=== PATIENT | male | born 1955 | race Caucasian/White ===

== ENCOUNTER 2018-12-16 14:37 | Inpatient (IN) | payer MEDICARE ==
[~2018-12-16] VITALS: Ht 154.9 cm; Wt 100.6 kg
[2018-12-16] MEDS ORDERED: Aspirin EC81 MG PO (15:04)
[2018-12-16] MEDS ORDERED: ATOR40TA PO (15:04)
[2018-12-16] MEDS ORDERED: CELE200 PO (15:05)
[2018-12-16] MEDS ORDERED: FISH OIL CONC1000 MG PO (15:06)
[2018-12-16] MEDS ORDERED: GABA400 PO (15:06)
[2018-12-16] MEDS ORDERED: Garlic Oil1000 MG PO (15:09)
[2018-12-16] MEDS ORDERED: LISI20 PO (15:10)
[2018-12-16] MEDS ORDERED: OMEPRAZOLE20 MG PO (15:10)
[2018-12-16 16:04] LABS: BASOPHILS ABSOLUTE AUTO 0.02 K/mm3 (0.00-0.23); BASOPHILS PERCENT AUTO 0 % (0-2); EOSINOPHILS ABSOLUTE AUTO 0.01 K/mm3 (0.00-0.68); EOSINOPHILS PERCENT AUTO 0 % (0-6); Hemoglobin 12.6 g/dL (13.5-17.5); IMMATURE GRAN ABSOLUTE AUTO 0.06 K/mm3 (0.00-0.10); IMMATURE GRAN PERCENT AUTO 1 % (0-1); LYMPHOCYTES ABSOLUTE AUTO 0.81 K/mm3 (0.84-5.20); LYMPHOCYTES PERCENT AUTO 7 % (21-46); MONOCYTES ABSOLUTE AUTO 1.09 K/mm3 (0.16-1.47); MONOCYTES PERCENT AUTO 9 % (4-13); Mean Corpuscular HGB Conc 34.1 g/dL (31.5-36.5); Mean Corpuscular Volume 94 fL (80-100); Mean Platelet Volume 8.5 fL (9.1-12.4); NEUTROPHILS PERCENT AUTO 83 % (41-73); Platelet Count 140 K/mm3 (150-400); RDW Coefficient Variation 11.6 % (11.7-14.2); RDW Standard Deviation 40.1 fL (35.1-46.3); Red Blood Cell Count 3.94 M/mm3 (4.30-5.90); White Blood Cell Count 11.59 K/mm3 (4.00-11.30)
[2018-12-16 19:06] LABS: Body Fluid Crystals NEG (NEGATIVE)
[2018-12-16 19:13] LABS: Automated BF RBC Count 0.085 M/mm3 (0-0); RBC Count, Body Fluid 85000 /mm3 (0-0)
[2018-12-16 19:39] LABS: Body Fluid WBC Count 163780 /mm3 (0-999)
[2018-12-16 19:50] LABS: Color, Body Fluid Brown (None-Yellow); Total Cell Count, Body Fluid 100
[2018-12-16 19:51] LABS: Appearance, Body Fluid Turbid (Clear)
[2018-12-16] MEDS ORDERED: SILD50TA PO (20:02)
--- NOTE | 2018-12-17 00:48 | NUR ---
PT. WITH TEMP OF 102.4 THIS EVENING. MEDICATED PT. WITH TYLENOL PER EMAR @1930. REASSESSMENT OF TEMP WAS 103.1. NO APPARENT DISTRESS NOTED. CALLED PLACED TO CAYLA LUGO [facility] MAN. RECEIVED NEW ORDERS (SEE EMAR). INSTRUCTED BY PROVIDER TO ADMINISTER EARLY DOSE OF TYLENOL. PT. TOLERATED WELL, TEMPERATURE AT 98.8. PT. RESTING COMFORTABLY IN BED, NO APPARENT DISTRESS NOTED. DENIES NEEDS AT THIS TIME. CALL LIGHT WITHIN REACH AND SIDE RAILS UP X2. WILL CONT TO MONITOR.
--- NOTE | 2018-12-17 04:22 | NUR ---
SHIFT SUMMARY- PT. NEW ADMISSION FROM THE ED WITH LT HIP PAIN/SEPTIC ARTHRITIS. A&O, NOT ABLE TO SIT UP IN BED DUE TO SEVERE HIP PAIN. USING URINAL WITH ASSISTANCE AND VOIDING WELL. VS SHOWED ELEVATED TEMP AND HR. PT. NOT IN DISTRESS. MEDICATION GIVEN PER EMAR. ALSO NOTIFIED FURNACE TENDER LUGO OF ABNORMAL VS. NEW ORDERS RECEIVED. 500ML IV BOLUS ADMINISTERED AND PAIN MEDICATION GIVEN T/O THE NIGHT PRN PER EMAR. REASSESSMENT OF VS WNL. PT. SLEPT WELL T/O THE REST OF THE SHIFT. ORTHO CONSULT IN PLACE. MAINTENANCE IV FLUIDS RUNNNG. CALL LIGHT WITHIN REACH AND SIDE RAILS UP X2. WILL CONT TO MONITOR.
[2018-12-17 04:42] LABS: BASOPHILS ABSOLUTE AUTO 0.03 K/mm3 (0.00-0.23); BASOPHILS PERCENT AUTO 0 % (0-2); EOSINOPHILS ABSOLUTE AUTO 0.01 K/mm3 (0.00-0.68); EOSINOPHILS PERCENT AUTO 0 % (0-6); Hematocrit 35.1 % (37.0-53.0); IMMATURE GRAN ABSOLUTE AUTO 0.07 K/mm3 (0.00-0.10); IMMATURE GRAN PERCENT AUTO 1 % (0-1); LYMPHOCYTES ABSOLUTE AUTO 0.76 K/mm3 (0.84-5.20); LYMPHOCYTES PERCENT AUTO 7 % (21-46); MONOCYTES PERCENT AUTO 10 % (4-13); Mean Corpuscular HGB 32.2 pg (26.0-34.0); Mean Corpuscular HGB Conc 34.2 g/dL (31.5-36.5); Mean Corpuscular Volume 94 fL (80-100); Mean Platelet Volume 8.8 fL (9.1-12.4); NEUTROPHILS PERCENT AUTO 82 % (41-73); Platelet Count 141 K/mm3 (150-400); RDW Coefficient Variation 11.8 % (11.7-14.2); RDW Standard Deviation 40.8 fL (35.1-46.3); Red Blood Cell Count 3.73 M/mm3 (4.30-5.90); White Blood Cell Count 11.67 K/mm3 (4.00-11.30)
[2018-12-17 05:04] LABS: Anion Gap 5 mmol/L (6-16); Blood Urea Nitrogen 17 mg/dL (8-24); Bun/Creatinine Ratio 22.8 (12.0-20.0); CO2, Blood 26 mmol/L (21-32); Calcium, Blood 8.4 mg/dL (8.5-10.1); Chloride, Blood 105 mmol/L (98-108); Creatinine, Blood 0.74 mg/dL (0.60-1.20); Glomerular Filtration Rate >60 (60-); Glucose, Blood 121 mg/dL (70-99); Potassium, Blood 3.5 mmol/L (3.5-5.5); Sodium, Blood 136 mmol/L (136-145)
--- NOTE | 2018-12-17 12:30 | NUR ---
IN TO SEE PATIENT . WILL BE NPO AFTER MIDNITE FOR SURGERY
--- NOTE | 2018-12-17 16:18 | NUR ---
ECHO BEING DONE
--- NOTE | 2018-12-17 16:43 | NUR ---
Echocardiogram completed.
--- NOTE | 2018-12-17 18:27 | NUR ---
ALERT. ORIENTED. UNLABORED RESPIRATIONS. PASSING GAS, BUT UNABLE TO HAVE B.M AT THIS TIME. AWARE OF SURGERY TOMORROW. PAIN LEFT HIP SEEMS TO BE TOLERABLE W/PRN MEDS. IV PATENT. PATIENT NOT ABLE TO GET OOB DUE TO PAIN LEFT HIP. BED IN LOW POSITION. ABLE TO MAKE NEEDS KNOWN. WCTM.
--- NOTE | 2018-12-18 04:45 | NUR ---
SHIFT SUMMARY- PT. RESTED WELL T/O SHIFT. OCCASIONAL C/O PAIN AND DISCOMFORT TO THE LT. HIP. NO APPARENT DISTRESS NOTED. TOLERATING IV ABX'S WELL, IV FLUIDS RUNNING. PT. HAS BEEN NPO AFTER MN FOR AM SURGERY. CALL LIGHT WITHIN REACH AND SIDE RAILS UP X2. WILL CONT TO MONITOR.
[2018-12-18 04:57] LABS: BASOPHILS ABSOLUTE AUTO 0.02 K/mm3 (0.00-0.23); BASOPHILS PERCENT AUTO 0 % (0-2); EOSINOPHILS ABSOLUTE AUTO 0.03 K/mm3 (0.00-0.68); EOSINOPHILS PERCENT AUTO 0 % (0-6); Hemoglobin 11.8 g/dL (13.5-17.5); IMMATURE GRAN ABSOLUTE AUTO 0.04 K/mm3 (0.00-0.10); IMMATURE GRAN PERCENT AUTO 0 % (0-1); LYMPHOCYTES ABSOLUTE AUTO 0.75 K/mm3 (0.84-5.20); LYMPHOCYTES PERCENT AUTO 8 % (21-46); MONOCYTES ABSOLUTE AUTO 0.92 K/mm3 (0.16-1.47); MONOCYTES PERCENT AUTO 10 % (4-13); Mean Corpuscular HGB 31.8 pg (26.0-34.0); Mean Corpuscular HGB Conc 33.7 g/dL (31.5-36.5); Mean Corpuscular Volume 94 fL (80-100); Mean Platelet Volume 9.3 fL (9.1-12.4); NEUTROPHILS ABSOLUTE AUTO 7.45 K/mm3 (1.96-9.15); NEUTROPHILS PERCENT AUTO 81 % (41-73); Platelet Count 162 K/mm3 (150-400); RDW Standard Deviation 41.9 fL (35.1-46.3); Red Blood Cell Count 3.71 M/mm3 (4.30-5.90); White Blood Cell Count 9.21 K/mm3 (4.00-11.30)
[2018-12-18 05:20] LABS: Anion Gap 6 mmol/L (6-16); Blood Urea Nitrogen 12 mg/dL (8-24); Bun/Creatinine Ratio 16.9 (12.0-20.0); CO2, Blood 28 mmol/L (21-32); Calcium, Blood 8.6 mg/dL (8.5-10.1); Chloride, Blood 102 mmol/L (98-108); Creatinine, Blood 0.71 mg/dL (0.60-1.20); Glomerular Filtration Rate >60 (60-); Glucose, Blood 108 mg/dL (70-99); Potassium, Blood 3.7 mmol/L (3.5-5.5); Sodium, Blood 136 mmol/L (136-145)
[2018-12-18 05:36] LABS: C-REACTIVE PROTEIN, EXT RANGE >19.000 mg/dL (0.000-0.300)
[2018-12-18 10:42] LABS: Vancomycin, Trough 6.5 ug/mL (5.0-10.0)
--- NOTE | 2018-12-18 14:00 | NUR ---
TO SURGERY. IV SALINE LOCKED.
--- NOTE | 2018-12-18 14:14 | NUR ---
History, Chart, Medications and Allergies reviewed before start of procedure. Lungs clear T/O to Auscultation. Patient confirms NPO status and agrees with scheduled surgery. Pre-Op teaching done. Pt verbalizes understanding.
--- NOTE | 2018-12-18 17:46 | NUR ---
PATIENT BACK FROM SURGERY. IV LR HOOKED UP AT 125ML/HR. DRAIN IN PLACE LEFT HIP WITH RED FLUID IN TUBING. DRESSING INTACT. ICE PACK TO AREA. PATIENT ALERT. ORIENTED. VSWNL. INSTRUCTED ON I.S. W/PATIENT DOING 5. ADVISED WILL BE DOING 5 PER 1/2 HOUR. KEVON.
--- NOTE | 2018-12-18 18:36 | NUR ---
ALERT. ORIENTED. PLEASANT. ABLE TO SIT UP ABOUT 45 DEGREES IN BED; WHEREAS, COULD NOT DO THIS EARLIER OR YESTERDAY. LARGE B.M. IN DAY SURGERY. DRESSING DRY, INTACT. WCTM
--- NOTE | 2018-12-19 03:50 | NUR ---
SHIFT SUMMARY- PT. S/P I&D OF THE LT HIP. DRESSING C/D/I. HEMOVAC DRAIN IN PLACE, DRAINAGE AMOUNT OF 30ML 8HRS FROM TIME RETURN TO THE FLOOR. PAIN WELL MANAGED WITH CURRENT PAIN MEDIATION. CONTS ON IV ABX'S AND FLUIDS, TOLERATING WELL. PT. HAD NORMAL BM THIS EVENING. VS WNL T/O THE SHIFT. PT. HAS RESTED WELL T/O THE NIGHT, NO APPARENT DISTRESS NOTED. CALL LIGHT WITHIN REACH AND SIDE RAILS UP X2. WILL CONT TO MONITOR.
[2018-12-19 04:20] LABS: BASOPHILS ABSOLUTE AUTO 0.03 K/mm3 (0.00-0.23); BASOPHILS PERCENT AUTO 0 % (0-2); EOSINOPHILS ABSOLUTE AUTO 0.03 K/mm3 (0.00-0.68); EOSINOPHILS PERCENT AUTO 0 % (0-6); Hematocrit 33.3 % (37.0-53.0); Hemoglobin 11.4 g/dL (13.5-17.5); IMMATURE GRAN ABSOLUTE AUTO 0.08 K/mm3 (0.00-0.10); IMMATURE GRAN PERCENT AUTO 1 % (0-1); LYMPHOCYTES ABSOLUTE AUTO 0.92 K/mm3 (0.84-5.20); LYMPHOCYTES PERCENT AUTO 8 % (21-46); MONOCYTES ABSOLUTE AUTO 1.04 K/mm3 (0.16-1.47); MONOCYTES PERCENT AUTO 9 % (4-13); Mean Corpuscular HGB 31.8 pg (26.0-34.0); Mean Corpuscular HGB Conc 34.2 g/dL (31.5-36.5); Mean Corpuscular Volume 93 fL (80-100); Mean Platelet Volume 8.9 fL (9.1-12.4); NEUTROPHILS ABSOLUTE AUTO 9.46 K/mm3 (1.96-9.15); NEUTROPHILS PERCENT AUTO 82 % (41-73); Platelet Count 166 K/mm3 (150-400); RDW Coefficient Variation 12.2 % (11.7-14.2); RDW Standard Deviation 41.4 fL (35.1-46.3); Red Blood Cell Count 3.59 M/mm3 (4.30-5.90); White Blood Cell Count 11.56 K/mm3 (4.00-11.30)
--- NOTE | 2018-12-19 07:22 | NUR ---
REQUESTED PAIN MEDS FEW MINUTES AGO. PATIENT NOW SNORING. WHEN ASKED ABOUT PAIN LEVEL CONTINUES TO SNORE. NOT AWAKENED.UNLABORED RESPIRATIONS
--- NOTE | 2018-12-19 10:51 | NUR ---
PATIENT USES I.S. OFTEN.
--- NOTE | 2018-12-19 12:32 | NUR ---
hemovac drain taken out by surgeon.
--- NOTE | 2018-12-19 12:40 | NUR ---
IN RECLINER SINCE THIS MORNING. STS FEELS BETTER IN CHAIR THAN BED.
--- NOTE | 2018-12-19 13:07 | NUR ---
NOTIFIED PATIENT DEVELOPED RASH UPPER BACK, RAISED, ITCHY, RED. NO NEW MEDS. HAS HAD VANCO BEFORE WITHOUT ANY PROBLEMS. BENADRYL 25 MG P.O. ONCE
--- NOTE | 2018-12-19 15:21 | NUR ---
ITCHING TO BACK GONE. STILL RED, BUMPY. REDNESS SLIGHTLY BETTER
--- NOTE | 2018-12-19 16:52 | NUR ---
12/19/181651 Daisy Reeder VERIFICATIONS.
[2018-12-20 04:43] LABS: BASOPHILS ABSOLUTE AUTO 0.04 K/mm3 (0.00-0.23); BASOPHILS PERCENT AUTO 0 % (0-2); EOSINOPHILS ABSOLUTE AUTO 0.33 K/mm3 (0.00-0.68); EOSINOPHILS PERCENT AUTO 4 % (0-6); Hematocrit 31.8 % (37.0-53.0); Hemoglobin 10.6 g/dL (13.5-17.5); IMMATURE GRAN ABSOLUTE AUTO 0.18 K/mm3 (0.00-0.10); IMMATURE GRAN PERCENT AUTO 2 % (0-1); LYMPHOCYTES ABSOLUTE AUTO 1.33 K/mm3 (0.84-5.20); LYMPHOCYTES PERCENT AUTO 14 % (21-46); MONOCYTES ABSOLUTE AUTO 0.93 K/mm3 (0.16-1.47); MONOCYTES PERCENT AUTO 10 % (4-13); Mean Corpuscular HGB 31.6 pg (26.0-34.0); Mean Corpuscular HGB Conc 33.3 g/dL (31.5-36.5); Mean Corpuscular Volume 95 fL (80-100); Mean Platelet Volume 9.3 fL (9.1-12.4); NEUTROPHILS ABSOLUTE AUTO 6.58 K/mm3 (1.96-9.15); NEUTROPHILS PERCENT AUTO 70 % (41-73); Platelet Count 220 K/mm3 (150-400); RDW Coefficient Variation 12.6 % (11.7-14.2); RDW Standard Deviation 44.1 fL (35.1-46.3); Red Blood Cell Count 3.35 M/mm3 (4.30-5.90); White Blood Cell Count 9.39 K/mm3 (4.00-11.30)
--- NOTE | 2018-12-20 05:33 | NUR ---
SHIFT SUMMARY PATIENT IS ALERT AND ORIENTED TO SELF, PLACE AND TIME. COMPLAINS OF HIP PAIN THROUGHOUT THE NIGHT. MEDICATED ORDERED. ICE PACK USED WITH NO RELIEF. PATIENT DID NOT SLEEP MUCH THROUGHOUT THE NIGHT LIKELY DUE TO PAIN. VITALS STABLE. SURGICAL DRESSING IS C/D/I. NO NEW CHANGES THROUGHOUT THE NIGHT.
[2018-12-20] MEDS ORDERED: ACET500 PO (17:34)
[2018-12-20] MEDS ORDERED: Cefazolin1 GM/50 ML IV (17:36)
[2018-12-20] MEDS ORDERED: ROXICODONE5 MG PO (17:37)
--- NOTE | 2018-12-20 17:56 | NUR ---
PT DISCHARGED PT DISCHARGED TO [facility] , REPORT CALLED TO MINA WU, THE PT WAS A MODERATE ASSIST TO THE WHEELCHAIR DUR TO LEFT LEG PAIN, THE PT APPEARED TO BE BREATHING EASILTY ON RA, VS WNL AT UT, PT WAS TRANSFERED VIA WHEELCHAIR ACCOMPANIED BY LUDLOW ESCORT, BELONGINGS RELEASED TO THE PT
== END 2018-12-20 18:17 | DRG 482 ==
LOC: ER 14:37 → MEDS 18:06 → ER 18:06 → MEDS 18:47 → ENPENDDIS 12-20 17:33 → MEDS 12-20 18:17
PROVIDERS: Emergency Medicine; Nurse Practitioner Acute Care; Orthopaedic Surgery; ADMIT Internal Medicine
PROC: 0S9B3ZX Drainage of Left Hip Joint, Percutaneous Approach, Diagnostic (ICD-10-PCS; principal; 2018-12-16)
PROC: 0SBB0ZZ Excision of Left Hip Joint, Open Approach (ICD-10-PCS; 2018-12-18)
DX: M00.052 Staphylococcal arthritis, left hip (principal); Z79.82 Long term (current) use of aspirin; E78.5 Hyperlipidemia, unspecified; I10 Essential (primary) hypertension; K21.9 Gastro-esophageal reflux disease without esophagitis
CPT/HCPCS: 36415; 76000; 76882; 80048; 80202; 85025; 85651; 86140; 87040; 87070; 87075; 87077; 87147; 87186; 87205; 89051; 89060; 93005; 93010; 93306; 96374; 97110; 97116; 97161; 97165; 97530; 97535; 99285-25; C1751; J0330; J0690; J0696; J1170; J2250; J2370; J2405; J2710; J3010; J3370; J7040; J7050; J7120; Q0163

== ENCOUNTER 2019-02-28 16:22 | Inpatient (IN) | payer MEDICARE ==
[~2019-02-28] VITALS: Ht 198.1 cm; Wt 87.2 kg
[~2019-02-28 16:22] MED LIST: ACET500 PO; ATOR40TA PO; Aspirin EC81 MG PO; CELE200 PO; Cefazolin1 GM/50 ML IV; FISH OIL CONC1000 MG PO; GABA400 PO; Garlic Oil1000 MG PO; LISI20 PO; OMEPRAZOLE20 MG PO; ROXICODONE5 MG PO; SILD50TA PO
[2019-02-28 17:58] LABS: BASOPHILS ABSOLUTE AUTO 0.04 K/mm3 (0.00-0.23); BASOPHILS PERCENT AUTO 0 % (0-2); EOSINOPHILS ABSOLUTE AUTO 0.14 K/mm3 (0.00-0.68); EOSINOPHILS PERCENT AUTO 1 % (0-6); Hemoglobin 11.7 g/dL (13.5-17.5); IMMATURE GRAN ABSOLUTE AUTO 0.11 K/mm3 (0.00-0.10); IMMATURE GRAN PERCENT AUTO 1 % (0-1); LYMPHOCYTES ABSOLUTE AUTO 1.46 K/mm3 (0.84-5.20); LYMPHOCYTES PERCENT AUTO 13 % (21-46); MONOCYTES ABSOLUTE AUTO 0.81 K/mm3 (0.16-1.47); MONOCYTES PERCENT AUTO 7 % (4-13); Mean Corpuscular HGB 28.8 pg (26.0-34.0); Mean Corpuscular HGB Conc 32.5 g/dL (31.5-36.5); Mean Corpuscular Volume 89 fL (80-100); Mean Platelet Volume 8.2 fL (9.1-12.4); NEUTROPHILS ABSOLUTE AUTO 8.32 K/mm3 (1.96-9.15); NEUTROPHILS PERCENT AUTO 77 % (41-73); Platelet Count 373 K/mm3 (150-400); RDW Coefficient Variation 13.4 % (11.7-14.2); RDW Standard Deviation 43.9 fL (35.1-46.3); Red Blood Cell Count 4.06 M/mm3 (4.30-5.90); White Blood Cell Count 10.88 K/mm3 (4.00-11.30)
[2019-02-28] MEDS ORDERED: ATOR40TA PO (18:06)
[2019-02-28] MEDS ORDERED: CELECOXIB200 MG PO (18:06)
[2019-02-28] MEDS ORDERED: SILDENAFIL CIT100 MG PO (18:09)
[2019-02-28] MEDS ORDERED: Fish Oil 10001000 MG PO (18:10)
[2019-02-28 18:18] LABS: Alanine Aminotransfer (ALT/SGP 84 U/L (12-78); Albumin, Blood 2.6 g/dL (3.4-5.0); Albumin/Globulin Ratio 0.6 (0.8-1.8); Alk Phos 185 U/L (50-136); Anion Gap 5 mmol/L (6-16); Aspartate Aminotrans (AST/SGOT 75 U/L (12-37); Bilirubin, Total 0.6 mg/dL (0.1-1.0); Blood Urea Nitrogen 14 mg/dL (8-24); Bun/Creatinine Ratio 20.6 (12.0-20.0); CO2, Blood 26 mmol/L (21-32); Calcium, Blood 9.2 mg/dL (8.5-10.1); Chloride, Blood 101 mmol/L (98-108); Creatinine, Blood 0.68 mg/dL (0.60-1.20); Globulin, Blood 4.6 g/dL (2.2-4.0); Glomerular Filtration Rate >60 (60-); Glucose, Blood 95 mg/dL (70-99); Sodium, Blood 132 mmol/L (136-145); Total Protein, Blood 7.2 g/dL (6.4-8.2)
[2019-02-28 19:50] LABS: BODY FLUID RBC 0.213 M/mm3 (0-0); RBC Count, Synovial Fluid 213000 /mm3 (0-0); WBC Count, Synovial Fluid >200000 /mm3 (0-180)
[2019-02-28 19:51] LABS: Color, Synovial Fluid Dark Yellow (None-P Yel)
[2019-02-28 19:51] LABS: Prothrombin Time Results 10.6 Sec (9.7-11.5)
[2019-02-28 19:52] LABS: Appearance, Synovial Fluid Turbid (Clear)
[2019-02-28 20:21] LABS: Lymphs, Synovial Fluid 1 % (0-15); Monocytes/Macrophages, Synovia 1 % (0-65); Neutrophils, Synovial Fluid 98 % (0-24)
[2019-03-01 05:07] LABS: BASOPHILS ABSOLUTE AUTO 0.05 K/mm3 (0.00-0.23); BASOPHILS PERCENT AUTO 1 % (0-2); EOSINOPHILS ABSOLUTE AUTO 0.19 K/mm3 (0.00-0.68); EOSINOPHILS PERCENT AUTO 2 % (0-6); Hematocrit 36.6 % (37.0-53.0); Hemoglobin 11.7 g/dL (13.5-17.5); IMMATURE GRAN ABSOLUTE AUTO 0.13 K/mm3 (0.00-0.10); IMMATURE GRAN PERCENT AUTO 2 % (0-1); LYMPHOCYTES ABSOLUTE AUTO 1.67 K/mm3 (0.84-5.20); LYMPHOCYTES PERCENT AUTO 19 % (21-46); MONOCYTES ABSOLUTE AUTO 0.75 K/mm3 (0.16-1.47); MONOCYTES PERCENT AUTO 9 % (4-13); Mean Corpuscular HGB 28.7 pg (26.0-34.0); Mean Corpuscular Volume 90 fL (80-100); Mean Platelet Volume 8.1 fL (9.1-12.4); NEUTROPHILS ABSOLUTE AUTO 5.81 K/mm3 (1.96-9.15); NEUTROPHILS PERCENT AUTO 68 % (41-73); Platelet Count 368 K/mm3 (150-400); RDW Coefficient Variation 13.6 % (11.7-14.2); RDW Standard Deviation 44.5 fL (35.1-46.3); Red Blood Cell Count 4.07 M/mm3 (4.30-5.90)
[2019-03-01 05:27] LABS: Anion Gap 5 mmol/L (6-16); Blood Urea Nitrogen 14 mg/dL (8-24); Bun/Creatinine Ratio 20.2 (12.0-20.0); CO2, Blood 29 mmol/L (21-32); Chloride, Blood 102 mmol/L (98-108); Creatinine, Blood 0.69 mg/dL (0.60-1.20); Glomerular Filtration Rate >60 (60-); Glucose, Blood 87 mg/dL (70-99); Sodium, Blood 136 mmol/L (136-145)
--- NOTE | 2019-03-01 05:44 | NUR ---
SHIFT SUMMARY PT ER ADMIT THIS FOR LEFT HIP PAIN. PT STATUS POST LEFT HIP REPLACEMENT 12/28, AND HAS RECURRENT SEPTIC JOINT. PT HAS HAD INCREASED PAIN, ESPCIALLY WITH MOVMENT. USES A CANE FOR AMBULATION. ALL OTHER SYSTEMS ARE NEGATIVE ASIDE FROM HIP. MEDICATING WITH NORCO PRN FOR PAIN. MRI OF LEFT HIP HAS BEEN ORDERED. SCREENING FORM COMPLETED. VITALS STABLE. PT A/OX4. PLESANT AND COOPERATIVE WITH CARE. TELE IN PLACE WITH NSR. ADMISSION COMPLETE. WILL CONTINUE TO MONITOR AND REPORT TO ONCOMING RN.
--- NOTE | 2019-03-01 17:22 | NUR ---
SHIFT SUMMARY NO ACUTE CHANGES. PATIENT MEDICATED X 2 FOR PAIN THIS SHIFT. DENIES NAUSEA AND SHORTNESS OF BREATH. UP ONE ASSIST WITH CANE. PATIENT HAD MRI TODAY. PATIENT HAS INFECTION IN L HIP LOINT AND BONE. COBRA TRANSFER WHEN BED AVAILABLE. PATIENT MAY HAVE DRAIN PLACED IN HIP WHILE WAITING FOR COBRA TRANSFER. DR. JUÁREZ CONSULTING ON PATIENT. CALL LIGHT IN REACH.
--- NOTE | 2019-03-02 06:14 | NUR ---
MEDICAL FLOOR NOC SHIFT SUMMARY PATIENT ALERT AND ORIENTED X4 T/O SHIFT. RESP E/U ON ROOM AIR; L/S CLEAR. 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 PATIENT HAS ON GOING LEFT HIP PAIN RELIEVED WITH MEDICATIONS PER EMAR. PATIENT TO BE COBRA TRANSFERED TO [facility] OR [facility] WITH AN ACCEPT MD MATA FOR OSTEOMYLITIS OF LEFT HIP - [place] SURGICAL SITE NOTED FROM DRAINING 03/01 AND SCAR NOTED FROM DECEMBER. PATIENT PLEASANT AND COOPERATIVE WITH CARE - MEDICATED WITH IV ANTIBIOTICS PER EMAR THIS SHIFT. NO ACUTE CHANGES NOTED. CALL LIGHT W/I REACH, PATIENT DENIES ANY NEEDS AT THIS TIME. WILL CONTINUE TO MONITOR AND REPORT TO DAYSHIFT RN.
--- NOTE | 2019-03-02 18:12 | NUR ---
PATIENT CONSENTED TO COBRA TRANSFER. PATIENT WAS PICKED UP BY TRANSPORT AT 1740 AND LEFT WITH TRANSPORT. REPORT WAS CALLED TO PAULA AT [facility] FOR THE PATIENT PRIOR TO HIS TRANSFER. ALL DOCUMENTS SENT WITH THE PATIENT AND IMAGES HAVE BEEN PUSHED TO [facility].
== END 2019-03-02 17:45 | disposition short-term general hospital (02) | DRG 549 ==
LOC: ER 16:22 → MEDS 16:23 → ENPENDDIS 03-02 10:00 → MEDS 03-02 17:45
PROVIDERS: Emergency Medicine; ADMIT Internal Medicine
PROC: 0SBB3ZX Excision of Left Hip Joint, Percutaneous Approach, Diagnostic (ICD-10-PCS; principal; 2019-02-28)
DX: M00.052 Staphylococcal arthritis, left hip (principal); M86.8X8 Other osteomyelitis, other site; M87.9 Osteonecrosis, unspecified; B95.61 Methicillin susceptible Staphylococcus aureus infection as the cause of diseases classified elsewhere; I10 Essential (primary) hypertension; E78.5 Hyperlipidemia, unspecified; K21.9 Gastro-esophageal reflux disease without esophagitis; M50.10 Cervical disc disorder with radiculopathy, unspecified cervical region
CPT/HCPCS: 20611; 36415; 73502; 73723; 75989; 76942; 80048; 80053; 83605; 85025; 85610; 85651; 85730; 86140; 87040; 87070; 87075; 87077; 87186; 87205; 89051; 96374-59; 96375-59; 99285-25; A9270; A9270-GY; A9577; C1751; J1170; J1644; J1956; J2405; J3370; J7050

== ENCOUNTER 2021-07-13 11:37 | Day surgery (SDC) | payer OTHER ==
[~2021-07-13] VITALS: Ht 165.1 cm; Wt 97.5 kg
[~2021-07-13 11:37] MED LIST changes: +CELECOXIB200 MG PO; +DULO60 PO; +FAMO40; +Fish Oil 10001000 MG PO; +SILDENAFIL CIT100 MG PO
--- NOTE | 2021-07-13 13:21 | NUR ---
07/13/21 1321 AN ERWIN History, Chart, Medications and Allergies reviewed before start of procedure. Patient confirms NPO status and agrees with scheduled surgery. 3-LEAD EKG REVIEWED WITH PHYSICIAN PRIOR TO START OF PROCEDURE. MONITOR INTACT WITH CONTINUOUS PULSE OXIMETRY AND INTERMITTENT BP. PATIENT DETERMINED TO BE ASA APPROPRIATE FOR PROPOFOL SEDATION PRIOR TO START OF PROCEDURE BY DR. HPAM.
--- NOTE | 2021-07-13 14:26 | NUR ---
PT ALERT AND ORIENTED, TOLERATING PO FLUIDS AND FOOD.
--- NOTE | 2021-07-13 14:45 | NUR ---
Patient up to Ambulate independently. Gait steady. Discharge instructions reviewed with patient. Patient verbalizes understanding. Copy given to patient to take home. Patient States Post-Procedure ride home has been arranged. Discharged via wheelchair to private car for ride home. ALL BELONGINGS RETURNED TO PATIENT THAT THEY CAME TO [facility] WITH.
== END 2021-07-15 23:00 | disposition home or self-care (01) ==
LOC: ORSCMMR 11:37 → ORSCSDS 13:00 → ORD 13:00 → ORSCMMR 13:00
PROVIDERS: Surgery
PROC: 0DBE8ZX Excision of Large Intestine, Via Natural or Artificial Opening Endoscopic, Diagnostic (ICD-10-PCS; principal; 2021-07-13 13:00)
PROC: 0DBP8ZX Excision of Rectum, Via Natural or Artificial Opening Endoscopic, Diagnostic (ICD-10-PCS; principal; 2021-07-13 13:00)
DX: R19.4 Change in bowel habit (principal); D12.8 Benign neoplasm of rectum; N18.2 Chronic kidney disease, stage 2 (mild); I10 Essential (primary) hypertension; K21.9 Gastro-esophageal reflux disease without esophagitis; E78.5 Hyperlipidemia, unspecified; Z79.899 Other long term (current) drug therapy; Z79.82 Long term (current) use of aspirin
CPT/HCPCS: 88305; J2250; J2704; J7120

== ENCOUNTER 2021-08-18 07:40 | Observation (INO) | payer OTHER ==
[~2021-08-18] VITALS: Ht 165.1 cm; Wt 96.7 kg
--- NOTE | 2021-08-18 08:03 | NUR ---
History, Chart, Medications and Allergies reviewed before start of procedure. Lungs clear T/O to Auscultation. Pre-Op teaching done. Pt verbalizes understanding.
--- NOTE | 2021-08-18 08:08 | NUR ---
REPORT TO JAZMIN RAYGOZA.
--- NOTE | 2021-08-19 07:30 | NUR ---
SUMMARY PT PASSING FLATUS,BUT NO BM SO FAR.PT REQUESTING MIKE 10 MG INSTEAD OF HYDROCODONE 5MG STATES IN PAST, THIS HAS BEEN EFFECTIVE FOR HIM AND REPORTS HYDROCODONE IS NOT.PT ALSO C/O MILDLY SORE THROAT AND GRAVELY VOICE WHICH HE CONTRIBUTES TO INTUBATION, HOWEVER ENC TO MENTION TO DR. MARKHAM RN AWARE OF ABOVE AND AGREES TO FOLLOW UP WITH DR GREER.
[2021-08-19] MEDS ORDERED: ONDA4ODT MM (10:03)
[2021-08-19] MEDS ORDERED: OXYC5 PO (10:03)
--- NOTE | 2021-08-19 10:48 | NUR ---
08/19/21 1048 Raimundo Oreilly VERIFICATION: SPELLING CORECTION
--- NOTE | 2021-08-19 11:41 | NUR ---
Pt. is fully clothed and sitting up waiting for lunch and discharge. Pt. was only mildly unsettled regarding some nausea. Listen empathetically. While the Pt, was not particularly interested in spiritual care I did facilitate a life review. Pt. displayed evidence of engagement and trust. Pt. verbalized gratitude for the spiritual care visit.
--- NOTE | 2021-08-19 14:29 | NUR ---
DISCHARGE INSTRUCTIONS, PRESCRIPTIONS AND FOLLOW UP CARE GONE OVER WITH PT. ALL QUESTIONS ANSWERED. BELONGINGS GATHERED AND GIVEN TO PT. PT ESCORTED OUT IN WHEELCHAIR BY FAMILY AND PCT.
== END 2021-08-19 14:19 | disposition home or self-care (01) ==
LOC: SURS 07:40 → PRE IP 07:40 → SURS 07:41 → PRE IP 09:15 → SURS 12:59
PROVIDERS: ADMIT Surgery
PROC: 0DV44ZZ Restriction of Esophagogastric Junction, Percutaneous Endoscopic Approach (ICD-10-PCS; principal; 2021-08-18 09:15)
DX: K44.9 Diaphragmatic hernia without obstruction or gangrene (principal); K21.00 Gastro-esophageal reflux disease with esophagitis, without bleeding; I12.9 Hypertensive chronic kidney disease with stage 1 through stage 4 chronic kidney disease, or unspecified chronic kidney disease; N18.1 Chronic kidney disease, stage 1
CPT/HCPCS: 96372; 96375; 96376; A9270; G0378; J0690; J1100; J1170; J1650; J1885; J2250; J2370; J2405; J2704; J2765; J3010; J7120